=== PATIENT | female | born 1945 | race Hispanic/Latino ===

== ENCOUNTER → 2021-06-09 | Day surgery (SDC) | payer OTHER ==
[~2021-06-09] MED LIST: BASAGLAR K100 UNIT/1 PO; HYDROCHLOROTHIA25 MG PO; LIDOCAINE HCL 2% LOCAL INJ 5 ML SDV VIAL INJ ONE; LISINOPRIL10 MG PO; METFORMIN HCL500 MG PO; NATEGLINIDE60 MG PO; PRAVASTATIN SOD40 MG PO; PROPOFOL IV EMULSION 10 MG/ML 20 ML VIAL ONE
[2021-06-09 11:05] VITALS: BP 134/64
== END | disposition home or self-care (01) ==
LOC: OR 08:05
PROVIDERS: ATTEND Internal Medicine Gastroenterology
DX: R19.5 Other fecal abnormalities (principal); D12.0 Benign neoplasm of cecum; D12.2 Benign neoplasm of ascending colon; D12.4 Benign neoplasm of descending colon; K31.7 Polyp of stomach and duodenum; K29.60 Other gastritis without bleeding; Q27.33 Arteriovenous malformation of digestive system vessel; K25.9 Gastric ulcer, unspecified as acute or chronic, without hemorrhage or perforation; K59.09 Other constipation; K44.9 Diaphragmatic hernia without obstruction or gangrene; K31.89 Other diseases of stomach and duodenum; K64.8 Other hemorrhoids; E11.9 Type 2 diabetes mellitus without complications; I10 Essential (primary) hypertension; E78.5 Hyperlipidemia, unspecified; R07.9 Chest pain, unspecified; I83.90 Asymptomatic varicose veins of unspecified lower extremity; Z01.812 Encounter for preprocedural laboratory examination; Z20.822 Contact with and (suspected) exposure to COVID-19; Z79.4 Long term (current) use of insulin; Z79.82 Long term (current) use of aspirin; Z79.899 Other long term (current) drug therapy; Z68.34 Body mass index [BMI] 34.0-34.9, adult
CPT/HCPCS: 36415; 43239; 45384; 45385; 82948; 88305; 88312; J2001; J2704; U0002; 45378; 88304

== ENCOUNTER 2024-07-07 08:37 | Emergency (ER) | payer MEDICARE ==
[~2024-07-07] VITALS: Ht 149.9 cm; Wt 80.3 kg
[~2024-07-07 08:37] MED LIST changes: +DICYCLOMINE HCL10 MG PO; -LIDOCAINE HCL 2% LOCAL INJ 5 ML SDV VIAL INJ ONE; +PANTOPRAZOLE SO40 MG PO; -PROPOFOL IV EMULSION 10 MG/ML 20 ML VIAL ONE
[2024-07-07 08:47] VITALS: TEMP 97.1
[2024-07-07 09:33] LABS: BASOPHILS # (AUTO) 0.2 (0.0-0.1); BASOPHILS % 1.6 % (0.0-1.0); EOSINOPHILS # (AUTO) 0.4 (0.0-0.4); EOSINOPHILS % 3.5 % (0.0-6.0); HEMATOCRIT 37.2 % (34.2-44.1); HEMOGLOBIN 12.2 g/dL (12.0-16.0); LYMPHOCYTES # (AUTO) 3.8 (1.0-3.2); LYMPHOCYTES % 34.1 % (18.0-39.1); MEAN CORPUSCULAR HEMOGLOBIN 28.5 pg (28-32); MEAN CORPUSCULAR HGB CONC 32.8 g/dL (31-35); MEAN CORPUSCULAR VOLUME 86.9 fL (81-99); MONOCYTES % 9.1 % (4.4-11.3); NEUTROPHILS # (AUTO) 5.7 (2.1-6.9); NEUTROPHILS % 51.2 % (38.7-80.0); PLATELET COUNT 226 x10e3/uL (140-360); RED BLOOD COUNT 4.28 x10e6/uL (3.6-5.1); RED CELL DISTRIBUTION WIDTH 13.3 % (11.7-14.4); WHITE BLOOD COUNT 11.04 x10e3/uL (4.8-10.8)
[2024-07-07 09:34] LABS: ALBUMIN 3.7 g/dL (3.5-5.0); ANION GAP 16.2 mmol/L (8-16); BILIRUBIN,TOTAL 0.4 mg/dL (0.2-1.2); CALCIUM 9.4 mg/dL (8.4-10.2); CREATININE, SERUM 0.91 mg/dL (0.57-1.11); POTASSIUM 4.2 mmol/L (3.5-5.1); TOTAL PROTEIN 7.5 g/dL (6.5-8.1)
[2024-07-07 09:35] LABS: INR 0.98; PROTHROMBIN TIME 13.6 seconds (11.9-14.5)
[2024-07-07 09:36] LABS: PARTIAL THROMBOPLASTIN TIME 38.5 seconds (23.8-35.5)
[2024-07-07] MEDS: SODIUM CHLORIDE 0.9% 1000ML 1,000 ML IV STA (09:39)
[2024-07-07] MEDS: ONDANSETRON HCL INJ 2MG/ML 2ML 2 MG/ML VIAL IV STA (09:39)
[2024-07-07] MEDS: DICYCLOMINE HCL 20 MG/2 ML VIAL IM ONE (09:39)
[2024-07-07 09:40] LABS: TROPONIN I 0.01 ng/mL (0-0.300)
[2024-07-07] MEDS ORDERED: IOPAMIDOL 370 MG/ML 100 ML INFUS..BTL INJ ONE (09:44)
[2024-07-07 10:54] VITALS: PULSE 85; RESP 14; O2SAT 98
[2024-07-07 11:13] LABS: CLARITY,URINE CLEAR (CLEAR); COLOR,URINE YELLOW (YELLOW); LEUKOCYTE ESTERASE ,URINE NEGATIVE (NEGATIVE); PH,URINE 7 (5 - 7)
[2024-07-07 11:14] LABS: BACTERIA,URINE FEW /HPF; BILIRUBIN,URINE NEGATIVE (NEGATIVE); EPITHELIAL CELLS,URINE FEW /LPF; GLUCOSE, URINE NEGATIVE (NEGATIVE); KETONES,URINE NEGATIVE (NEGATIVE); NITRITE,URINE NEGATIVE (NEGATIVE); PROTEIN,URINE DIPSTICK NEGATIVE (NEGATIVE); RBC,URINE 0-5 /HPF (0-5); URINE UROBILINOGEN 0.2 mg/dL (0.2 - 1); WBC,URINE (MAN) 0-5 /HPF (0-5)
[2024-07-07] MEDS ORDERED: ONDANSETRON ODT4 MG PO (11:33)
== END 2024-07-07 11:56 | disposition home or self-care (01) ==
LOC: ER 08:44
DX: R11.0 Nausea (principal); R63.0 Anorexia; K29.70 Gastritis, unspecified, without bleeding; T38.3X5A Adverse effect of insulin and oral hypoglycemic [antidiabetic] drugs, initial encounter; I10 Essential (primary) hypertension; E11.9 Type 2 diabetes mellitus without complications; R94.31 Abnormal electrocardiogram [ECG] [EKG]
CPT/HCPCS: 36415; 71045; 74177; 80053; 81001; 82550; 83690; 83735; 84484; 85025; 85610; 85730; 93005; 99284; J0500; J2405; J2470; J7030; Q9967